=== PATIENT | male | born 2000 | race Two or more races ===

== ENCOUNTER 2022-12-15 11:25 | Emergency (ER) | payer OTHER, SELFPAY ==
--- NOTE | ~2022-12-15 | XR_ITS ---
EXAMINATION: XR SHOULDER, LEFT CLINICAL INFORMATION: Left chest and shoulder pain after heavy lifting COMPARISON: None TECHNIQUE: AP external rotation, Grashey, scapular Y, and axillary views of the left shoulder. FINDINGS: The bones and soft tissues are normal. No fracture. Glenohumeral and acromioclavicular alignment is anatomic with normal joint space. No abnormal soft tissue calcifications. XR/XR shoulder LT min 2V IMPRESSION: Normal left shoulder.
--- NOTE | ~2022-12-15 | XR_ITS ---
EXAMINATION: XR CHEST CLINICAL INFORMATION: Left chest wall pain COMPARISON: None TECHNIQUE: 2 views of the chest were obtained. FINDINGS: No significant abnormality is noted involving the heart, lungs, mediastinum, bony thorax or soft tissues. XR/XR chest 2V IMPRESSION: Unremarkable examination.
[2022-12-15 11:28] VITALS: BP 144/81; PULSE 72; RESP 19; TEMP 36.6; O2SAT 98; BMI 22.4
--- NOTE | 2022-12-15 11:49 | ED.UPPEXIN ---
HPI - Extremity Injury (Upper) General Chief Complaint: General Medical <PAULY Ramirez - Last Filed: 12/15/22 11:54> Stated Complaint: Chest pain/L arm pain <PAULY Rmairez - Last Filed: 12/15/22 11:54> Time Seen by Provider: 12/15/22 13:09 <PAULY Ramirez - Last Filed: 12/15/22 11:54> Source: patient <PAULY Maloney - Last Filed: 12/15/22 14:17> Mode of arrival: ambulatory <PAULY Maloney - Last Filed: 12/15/22 14:17> Limitations: no limitations <PAULY Maloney Last Filed: 12/15/22 14:17> History of Present Illness HPI narrative: 22-year-old male presents to the ER for evaluation of left shoulder pain and left chest wall pain after working out. He states he just started working out again and isn't doing a lot of heavy lifting. He states for the last 4 days he has had soreness in his left shoulder and left chest wall. It is worse with palpation and movement. He denies any shortness of breath. No radiation of the pain. No other muscle pain or weakness. No cough or fevers. <PAULY Maloney - Last Filed: 12/15/22 14:17> MD complaint: injury to: left and shoulder <PAULY Maloney - Last Filed: 12/15/22 14:17> Onset (ago): day(s) (4) <PAULY Maloney - Last Filed: 12/15/22 14:17> Other injuries: none <PAULY Maloney - Last Filed: 12/15/22 14:17> Severity: moderate <PAULY Maloney Last Filed: 12/15/22 14:17> Severity scale (1-10): 7 <PAULY Maloney Last Filed: 12/15/22 14:17> Relieving factors: immobilization and rest <PAULY Maloney Last Filed: 12/15/22 14:17> Exacerbating factors: movement of extremity <PAULY Maloney Last Filed: 12/15/22 14:17> Context: sports-related injury <PAULY Maloney - Last Filed: 12/15/22 14:17> Associated symptoms: denies other symptoms <PAULY Maloney - Last Filed: 12/15/22 14:17> Related Data Home Medications: Previous Rx's Medication Instructions Recorded naproxen 500 mg tablet 500 mg PO BID PRN pain #20 tabs 12/15/22 <PAULY Ramirez - Last Filed: 12/15/22 11:54> Allergies/Adverse Reactions: Allergies Allergy/AdvReac Type Severity Reaction Status Date / Time No Known Allergies Allergy Verified 12/15/22 11:31 <PAULY Ramirez - Last Filed: 12/15/22 11:54> Review of Systems Review of Systems: Yes all other systems are reviewed and are negative <PAULY Maloney - Last Filed: 12/15/22 14:17> [facility] Social History Social History: Social History Advance Directives: No Advance Directives Information Provided: No <PAULY Ramirez - Last Filed: 12/15/22 11:54> Physical Exam Vital Signs: Vital Signs: Last Vital Signs Temp 98 F 12/15/22 11:28 Pulse 72 12/15/22 11:28 Resp 12/15/22 11:28 BP 144/81 H 12/15/22 11:28 Pulse Ox 98 12/15/22 11:28 O2 Del Method 12/15/22 11:28 BMI result Body Mass Index 22.4 <PAULY Ramirez - Last Filed: 12/15/22 11:54> Vital Signs: Last Vital Signs Temp 98 F 12/15/22 11:28 Pulse 72 12/15/22 11:28 Resp 19 12/15/22 11:28 BP 144/81 H 12/15/22 11:28 Pulse Ox 98 12/15/22 11:28 O2 Del Method 12/15/22 11:28 BMI result Body Mass Index 22.4 <PAULY Maloney - Last Filed: 12/15/22 14:17> Appearance: Alert. Oriented X3. No acute distress. HEENT: normal inspection CVS: Normal heart rate and rhythm. Pulses normal. Respiratory: No respiratory distress. Lungs CTAB. soft tissue tenderness of left anterior chest wall. Skin: Skin warm and dry. Normal skin color. Normal skin turgor. No rashes. Extremities: normal inspection x4. left shoulder with tenderness laterally and anteriorly. limited abduction past 90 degrees due to pain. negative empty can test. normal ROM of the left elbow and wrist. NV intact distally. equal development expert strength bilaterally. Neuro: Oriented X 3. No motor deficit. No sensory deficit. <PAULY Maloney - Last Filed: 12/15/22 14:17> Course Course Course Narrative: KIRK-11:30AM - 22yoM who is Kiswahili speaking is presenting to the ED c c/o left shoulder/chest wall pain worse with movement or lifting the left shoulder/arm. Reports it started after working out to a it trainer at the gym and reports he has not worked out in a while. On Exam pt is TTP to left shoulder/ac joint/chest wall with LROM of left shoulder. Plan: Xray of left soulder/chest and pt sent to to [place] [facility] [place] <PAULY Ramirez Last Filed: 12/15/22 11:54> Reevaluation(s) Reevaluation #1: XR normal. Exam and clinical presentation are most consistent with costochondritis and muscular pain due to strain and overdoing it. Will treat with NSAIDS and rest and have him f/u with his PCP. Stable for d/c home. <PAULY Maloney Last Filed: 12/15/22 14:17> Medical Decision Making Differential Diagnosis Differential Diagnoses: The differential diagnosis associated with the presentation includes <PAULY Maloney Last Filed: 12/15/22 14:17> Costochondritis, chest wall pain, tendonitis of the shoulder, bursitis of the shoulder, muscle strain and spasm, less likely pneumonia, rhabdomyolysis, ACS or PE <PAULY Maloney Last Filed: 12/15/22 14:17> Independent Interpretation I performed an independent interpretation of an: Plain X-Ray <PAULY Maloney Last Filed: 12/15/22 14:17> Interpretation: No acute fractures are seen <PAULY Maloney Last Filed: 12/15/22 14:17> Radiology Impression Discussion of test interpretation with radiology: I have reviewed the radiologist's reading. <PAULY Maloney Last Filed: 12/15/22 14:17> Radiologist Impression: CXR IMPRESSION: Unremarkable examination. left shoulder IMPRESSION: Normal left shoulder. <PAULY Maloney Last Filed: 12/15/22 14:17> Prescription Management I considered prescription management with: Pain Medication <PAULY Maloney Last Filed: 12/15/22 14:17> NSAIDS and tylenol <PAULY Maloney Last Filed: 12/15/22 14:17> Critical Care Time Critical Care Time Critical Care Time: No <PAULY Maloney Last Filed: 12/15/22 14:17> Discharge Plan Discharge Clinical Impression: Costochondritis <PAULY Ramirez Last Filed: 12/15/22 11:54> Patient Disposition: Home, Self-Care <PAULY Ramirez Last Filed: 12/15/22 11:54> Instructions: Costochondritis (ED) <PAULY Ramirez Last Filed: 12/15/22 11:54> Additional Instructions: Your x-rays today were normal. Recommend taking the prescribed anti-inflammatory pain medication as needed for pain. Rest. No strenuous activity until all your symptoms are improved. Follow up with your doctor as needed. <PAULY Ramirez - Last Filed: 12/15/22 11:54> Prescriptions: New naproxen 500 mg tablet 500 mg PO BID PRN (Reason: pain) Qty: 20 0RF <PAULY Ramirez - Last Filed: 12/15/22 11:54> Print Language: Kiswahili <PAULY Ramirez Last Filed: 12/15/22 11:54>
[2022-12-15 14:21] VITALS: BP 143/77; PULSE 55; RESP 18; O2SAT 99
== END 2022-12-15 14:25 | disposition home or self-care (01) ==
PROVIDERS: Emergency Provider Emergency Medicine
DX: M94.0 Chondrocostal junction syndrome [Tietze] (principal)
CPT/HCPCS: 71046; 73030; 99283; 99284